=== PATIENT | male | born 1935 | race Caucasian/White ===

== ENCOUNTER 2017-07-07 22:31 | Observation (INO) | payer MEDICARE ==
[~2017-07-07] VITALS: Ht 190.5 cm; Wt 94.8 kg
[~2017-07-07 22:31] MED LIST: ALLOPURINOL300 MG OR; CEPHALEXIN500 MG OR; COUMADIN5 MG PO; COUMADIN7.5 MG PO; DILTIAZEM180 M1 OR; DYRENIUM50 MG OR; FLEXERIL OR; FLONASE0.05 %; GLUCOSAMINE1 TAB OR; GLUCOSAMINE1000 MG OR; LIPITOR10 MG OR; MAXZIDE PO; MEDDOSEPAK OR; MULTI VITAMN OR; NEXIUM40 M1 OR; PREVACID30 M1 OR; TAM75CAP OR; WARFARIN5 MG OR; WARFARIN7.5 MG OR
--- NOTE | 2017-07-07 22:59 | NUR ---
PT AMBULATORY TO ROOM # 9 W/A STEADY GAIT.
--- NOTE | 2017-07-07 23:07 | NUR ---
PT. WITH C/O STEPPING ON SHREADS OF GLASS APPROX. 1 WEEK AGO. RIGHT FOOT APPEARS REDDENED WARM AND EDEMATOUS. PLUSES +.
[2017-07-07] MEDS ORDERED: LOSARTAN POTASS50 MG PO (23:12)
[2017-07-07] MEDS ORDERED: JALYN PO (23:13)
[2017-07-07 23:38] LABS: HEMOGLOBIN 13.7 g/dl (14.0-18.0); IMMATURE GRANULOCYTES 0.3 % (0.0-1.0); MEAN CELL VOLUME 87.4 fL CALC (80.0-100.0); MEAN CORPUSCULAR HGB 29.2 pG CALC (26.0-32.0); MEAN CORPUSCULAR HGB CONC 33.4 g/L CALC (32.0-36.0); NEUT# 5.9 thou/uL (1.82-7.42); RED BLOOD COUNT 4.69 mill/uL (4.70-6.10)
--- NOTE | 2017-07-07 23:50 | NUR ---
IV ABT. AND PO PAIN MED GIVEN PER MD ORDER.
[2017-07-07 23:55] LABS: ALBUMIN 4.5 g/dL (3.2-5.0); ALKALINE PHOSPHATASE 116 u/l (38-126); ANION GAP 16 (6-22 (CALC)); BILIRUBIN, TOTAL 0.6 mg/dL (0.0-1.4); BUN 21 mg/dL (8-23); BUN/CREATININE RATIO 19 (12-20 (CALC)); CARBON DIOXIDE 27 mmol/l (22-30); CHLORIDE 106 mmol/l (95-108); CREATININE 1.1 mg/dL (0.7-1.3); GFR > 60 ML/MIN (>=60 (CALC)); GFR FOR AFR.AMER. > 60 ML/MIN (>=60 (CALC)); POTASSIUM 4.5 mmol/l (3.5-5.1); SGOT/AST 28 u/l (19-48); SGPT/ALT 35 u/l (11-66); SODIUM 145 mmol/l (137-146); TOTAL PROTEIN 7.2 g/dL (6.3-8.2)
--- NOTE | 2017-07-08 00:45 | NUR ---
PT. STATES HIS RIGHT FOOT PAIN HAS RESOLVED OF THIS TIME.
--- NOTE | 2017-07-08 01:00 | NUR ---
MD IN ROOM TO DISCUSS CLINICAL FINDINGS WITH PT. VERBALIZED UNDERSTANDING. PT. ALSO MADEE AWARE OF IMPENDING ADMISSION, VERBALIZED UNDERSTANDING.
--- NOTE | 2017-07-08 01:42 | NUR ---
IVF STARTED PER MD ORDER.
--- NOTE | 2017-07-08 02:27 | NUR ---
Admission Note Report Given to: WES MATA Transported by: Wheelchair X Stretcher Transported with: X Nurse Transporter X Patent IV O2 Intranet Specialist
[2017-07-08 02:45] VITALS: BP 178/84
--- NOTE | 2017-07-08 02:45 | NUR ---
PT ARRIVED TO UNIT VIA STRETCHER WITH ER STAFF. AMBULATED TO BED INDEPENDENLTY. AT BEDSIDE. ALERT AND ORIENTED. DENIES PAIN STATING THAT PERCOCET GIVEN IN ED WAS EFFECTIVE. RESPIRATIONS EVEN AND UNLABORED ON ROOM AIR. ORIENTED TO ROOM AND CALL LIGHT SYSTEM. PLAN OF CARE DISCUSSED. PT ENCOURAGED TO VERBALIZE CONCERNS. STATES UNDERSTANDING. SAFETY MEASURES IN PLACE. CALL LIGHT WITHIN REACH.
--- NOTE | 2017-07-08 02:45 | NUR ---
PT. TAKEN TO MS VIA STRETCHER. IVF INFUSING WELL, NO REDNESS OR EDEMA NOTED.
--- NOTE | 2017-07-08 06:18 | NUR ---
PT ASLEEP AT THIS TIME WITH NO SIGNS OF DISTRESS NOTED. RESPIRATIONS EVEN AND UNLABORED ON ROOM AIR. REMAINS AT BEDSIDE. SAFETY MEASURES IN PLACE. CALL LIGHT WITHIN REACH.
--- NOTE | 2017-07-08 07:00 | NUR ---
REPORT RECEIVED BY FRANKLIN. PT IS RESTING IN BED AND DENIES NEEDS AT THIS TIME. IN ROOM.
[2017-07-08 07:21] LABS: URINE BILIRUBIN - DIPSTICK NEGATIVE (NEGATIVE); URINE BLOOD DIPSTICK TRACE-INTACT (NEGATIVE); URINE CLARITY CLEAR; URINE COLOR YELLOW; URINE GLUCOSE - DIPSTICK NEGATIVE (NEGATIVE); URINE KETONE NEGATIVE (NEGATIVE); URINE LEUK ESTERASE NEGATIVE (NEGATIVE); URINE NITRITE - DIPSTICK NEGATIVE (Negative); URINE PROTEIN - DIPSTICK NEGATIVE (NEG-TRACE); URINE UROBILINOGEN - DIPSTICK 0.2 E.U./dL (0.2)
[2017-07-08 07:30] VITALS: BP 164/86
[2017-07-08 08:00] VITALS: BP 164/86
--- NOTE | 2017-07-08 08:00 | NUR ---
PT IS SITTING IN THE SIDE OF THE BED. ASSESSMENT DONE. RESPS EVEN AND UNLABORED. PT DENIES PAIN AT THIS TIME. RIGHT FOOT IS WARM TO THE TOUCH. ORIENTED TO CALL LIGHT AND SAFETY PRECAUTIONS REINFORCED. IN ROOM.
--- NOTE | 2017-07-08 09:25 | NUR ---
DR. LEWIS AT BEDSIDE DOING PROCEDURE ON RIGHT FOOT.
[2017-07-08 09:39] LABS: INTERNATIONAL NORMALIZED RATIO 2.1 RATIO (0.7-1.3); PROTHROMBIN TIME 23.8 SECONDS (9.0-12.5)
--- NOTE | 2017-07-08 12:00 | NUR ---
PT IS SITTING IN BED EATING HIS LUNCH. IN ROOM. PT DENIES ANY NEEDS AT THIS TIME. CALL LIGHT IN REACH.
[2017-07-08] MEDS ORDERED: AUGMENTIN875TAB PO (12:32)
[2017-07-08] MEDS ORDERED: TRAMADOL HCL50 MG PO (12:32)
--- NOTE | 2017-07-08 13:15 | NUR ---
Discharge instructions given. Patient verbalizes understanding of same. Discharged in stable condition via Wheelchair to Home with spouse. All belongings sent with pt.
== END 2017-07-08 13:15 | disposition home or self-care (01) ==
LOC: ED 22:31 → ED-I 07-08 00:50 → ED 07-08 01:13 → MS2 07-08 01:14
PROVIDERS: Emergency Medicine; Nurse Practitioner Family; ADMIT Internal Medicine; ATTEND Internal Medicine
PROC: 0HCMXZZ Extirpation of Matter from Right Foot Skin, External Approach (ICD-10-PCS; principal; 2017-07-08)
DX: L03.115 Cellulitis of right lower limb (principal); I48.2 Chronic atrial fibrillation; L02.611 Cutaneous abscess of right foot; M79.5 Residual foreign body in soft tissue; M15.9 Polyosteoarthritis, unspecified; Z79.01 Long term (current) use of anticoagulants; Z95.0 Presence of cardiac pacemaker; Z96.653 Presence of artificial knee joint, bilateral; Z88.4 Allergy status to anesthetic agent
CPT/HCPCS: J3370

== ENCOUNTER → 2018-07-02 | Outpatient (REF) | payer MEDICARE ==
[~2018-07-02] MED LIST changes: +AUGMENTIN875TAB PO; +JALYN PO; +LOSARTAN POTASS50 MG PO; +TRAMADOL HCL50 MG PO
[2018-07-02 08:41] LABS: HEMATOCRIT 40.5 % (39.0-50.0); HEMOGLOBIN 13.5 g/dl (14.0-18.0); MEAN CELL VOLUME 87.1 fL CALC (80.0-100.0); MEAN CORPUSCULAR HGB CONC 33.3 g/L CALC (32.0-36.0); RED BLOOD COUNT 4.65 mill/uL (4.70-6.10); RED CELL DISTRI WIDTH 14.6 % (11.5-15.5)
[2018-07-02 09:08] LABS: ANION GAP 12 (6-22 (CALC)); BUN 17 mg/dL (8-23); BUN/CREATININE RATIO 18 (12-20 (CALC)); CARBON DIOXIDE 25 mmol/l (22-30); CHLORIDE 107 mmol/l (95-108); GFR > 60 ML/MIN (>=60 (CALC)); GFR FOR AFR.AMER. > 60 ML/MIN (>=60 (CALC)); POTASSIUM 4.4 mmol/l (3.5-5.1); SODIUM 140 mmol/l (137-146)
== END | disposition home or self-care (01) ==
LOC: LAB 07:57
PROVIDERS: ATTEND Nurse Practitioner Family
DX: I10 Essential (primary) hypertension (principal); E78.49 Other hyperlipidemia